=== PATIENT | male | born 1995 | race Native Hawaiian/Other Pacific Islander ===

== ENCOUNTER → 2022-06-29 13:03 | Outpatient (CLI) | payer OTHER, SELFPAY ==
--- NOTE | 2022-06-29 13:06 | DI.RAD.S_ITS ---
PROCEDURE: [place] SHOULDER INJECTION MR/CT LT INDICATIONS: PAIN IN LEFT SHOULDER COMPARISON: None. TECHNIQUE: The indications, alternatives, benefits, risks, and complications of the procedure were explained to the patient. Written informed consent was obtained and placed in the chart. The shoulder was examined fluoroscopically and a site for needle placement chosen for entry into the glenohumeral joint from an anterior approach. The skin was prepped and draped in a sterile fashion, and 1% lidocaine infiltrated from skin down to joint capsule. A spinal needle was inserted into the glenohumeral joint, and a small amount of iodinated contrast media injected to confirm intra-articular placement of the needle tip. This was followed by approximately 12 mL dilute solution of a gadolinium containing MR contrast agent. The needle was removed and a dressing was applied. The patient was given postprocedural instructions and sent to the MR suite for MR imaging. FINDINGS: A single fluoroscopic spot image demonstrates intra-articular location of injected iodinated contrast. IMPRESSION: Successful fluoroscopically guided administration of dilute Gadolinium solution into the shoulder joint for MR arthrogram. Dictated by: Quang Jerry M.D. on 07/07/2022 at 15:56 Approved by: Quang Jerry M.D. on 07/07/2022 at 15:56
--- NOTE | 2022-06-29 13:40 | DI.MRI.S_ITS ---
PROCEDURE: MR SHOULDER LT W CON INDICATIONS: PAIN IN LEFT SHOULDER TECHNIQUE: After the administration of 12 mL of dilute intra-articular Gadolinium contrast, oblique coronal T1 and T2 spin echo with fat saturation, oblique sagittal T1 spin echo with and without fat saturation, oblique sagittal T2 fast spin echo with fat saturation, axial T1 spin echo with fat saturation through the shoulder. COMPARISON: [facility], , [place] SHOULDER INJECTION MR/CT LT, 06/29/2022, 13:28. FINDINGS: Image quality: Excellent. Rotator cuff: Mild supraspinatus and infraspinatus tendinosis. The teres minor and subscapularis tendons are intact. There is no significant rotator cuff tendon tear. The rotator cuff musculature is normal in bulk. Bones and bursae: No acute trabecular bone injury or fracture. No focal cartilage loss in the glenohumeral joint. Mild degenerative changes at the acromioclavicular joint. There is trace noncommunicating subacromial/subdeltoid bursal fluid. No filling defect is seen within the glenohumeral joint space. Capsule and soft tissues: Diminutive appearance of the anterosuperior labrum is seen that is favored to represent congenital variation rather than chronic tearing. The remainder of the labrum is intact. Proximal biceps long head tendon is intact. Glenohumeral ligaments are intact. IMPRESSION: 1. Mild supraspinatus and infraspinatus tendinosis. No significant rotator cuff tendon tear is seen. 2. Diminutive appearance of the anterosuperior labrum is favored to represent normal anatomic variation rather than chronic tearing. 3. Biceps long head tendon is intact. No acute trabecular bone injury. 4. Mild acromioclavicular joint osteoarthrosis. 5. Trace noncommunicating subacromial/subdeltoid bursal effusion or bursitis. Approved by: Ariel Klein M.D. on 06/30/2022 at 11:21
== END ==
PROVIDERS: Referring Provider Orthopaedic Surgery; Visit Provider Orthopaedic Surgery
DX: M19.012 Primary osteoarthritis, left shoulder (principal); M25.512 Pain in left shoulder
CPT/HCPCS: 23350; 73222